=== PATIENT | female | born 1995 | race Caucasian/White ===

== ENCOUNTER 2023-06-04 16:37 | Inpatient (IN) | payer BC ==
[2023-06-04] MEDS ORDERED: Ampicillin 2 GM in Sodium Chloride 0.9% 100 ML IV ONE (18:33)
[2023-06-04] MEDS ORDERED: Sodium Chloride 0.9% 10 ML Syringe FLUSH PRN (18:33)
[2023-06-04] MEDS ORDERED: Nalbuphine 10 MG/0.5 ML Syringe IVPUSH PRN (18:33)
[2023-06-04] MEDS ORDERED: Oxytocin/Lactated Ringers 10 UNIT/1,000 ML BAG IV SCH (18:45)
[2023-06-04] MEDS: Lactated Ringers 1,000 ML IV SCH ×3 (18:58→23:18)
[2023-06-04] MEDS ORDERED: diphenhydrAMINE 50 MG/ML SDV IVPUSH PRN (19:04)
[2023-06-04] MEDS ORDERED: Bupivacaine/fentaNYL/NS 100 ML Bag EPIDUR PRN (19:04)
[2023-06-04] MEDS ORDERED: fentaNYL 100 MCG/2 ML SDV EPIDUR PRN (19:04)
[2023-06-04] MEDS ORDERED: ePHEDrine 50 MG/ML SDV IVPUSH PRN (19:04)
[2023-06-04 19:07] LABS: BASOPHILS PERCENT AUTO 0.2 % (0.0-1.0); EOSINOPHILS PERCENT AUTO 0.2 % (0.0-6.0); HEMATOCRIT 35.3 % (37.0-47.0); HEMOGLOBIN 12.1 gm/dl (12.0-16.0); IMMATURE GRAN PERCENT AUTO 0.6 % (0.0-0.4); LYMPHOCYTES ABSOLUTE AUTO 1.9 K/mm3 (1.0-4.8); LYMPHOCYTES PERCENT AUTO 11.6 % (24.0-44.0); MEAN CORPUSCULAR HEMOGLOBIN 30.3 pg (28.0-32.0); MEAN CORPUSCULAR HGB CONC 34.3 g/dl (32.0-36.0); MEAN CORPUSCULAR VOLUME 88.5 fl (83.0-99.0); MEAN PLATELET VOLUME 10.7 fl (9.4-12.3); MONOCYTES ABSOLUTE AUTO 0.7 K/mm3 (0.0-0.8); MONOCYTES PERCENT AUTO 4.5 % (0.0-8.0); NEUTROPHILS ABSOLUTE AUTO 13.5 K/mm3 (1.8-7.7); NEUTROPHILS PERCENT AUTO 82.9 % (41.0-71.0); PLATELET COUNT,PLT 220 K/mm3 (150-400); RED BLOOD CELL COUNT 3.99 M/mm3 (4.10-5.30); WHITE BLOOD CELL COUNT,WBC 16.31 K/mm3 (3.9-11.3)
[2023-06-04] MEDS ORDERED: Sodium Chloride 0.9% 10 ML Syringe FLUSH SCH (21:00)
[2023-06-04] MEDS: Ampicillin 1 GM in Sodium Chloride 0.9% 100 ML IV SCH (23:13)
[2023-06-05] MEDS: Lactated Ringers 1,000 ML IV SCH (00:32)
[2023-06-05] MEDS ORDERED: Acetaminophen 325 MG Tab PO PRN (03:05)
[2023-06-05] MEDS ORDERED: Docusate Sodium 100 MG Cap PO PRN (03:05)
[2023-06-05] MEDS ORDERED: Benzocaine/Menthol 20%-0.5% Spray 78 GM Cannister TOP PRN (03:05)
[2023-06-05] MEDS: Ibuprofen 600 MG Tab PO PRN ×3 (03:29→20:56)
[2023-06-05] MEDS: Witch Hazel Medicated Pads 40/Jar TOP PRN (14:19)
[2023-06-06] MEDS: Ampicillin 1 GM in Sodium Chloride 0.9% 100 ML IV SCH (10:15)
[2023-06-06] MEDS: Ibuprofen 600 MG Tab PO PRN ×2 (12:17→20:44)
[2023-06-06] MEDS: Witch Hazel Medicated Pads 40/Jar TOP PRN (12:21)
[2023-06-07] MEDS ORDERED: Measles, Mumps & Rubella Vaccine 0.5 ML SDV SUBCUT ONE (10:45)
== END 2023-06-07 12:10 | disposition home or self-care (01) | DRG 560 ==
LOC: JD.OBCHECK 16:37 → JD.OB 17:01 → JD.OBCHECK 18:32 → JD.OB 18:33 → OBSVTOIN 06-05 01:58 → JD.OB 06-05 01:59
PROVIDERS: ADMIT Obstetrics & Gynecology; ATTEND Obstetrics & Gynecology
PROC: 10E0XZZ Delivery of Products of Conception, External Approach (ICD-10-PCS; principal; 2023-06-05)
PROC: 0KQM0ZZ Repair Perineum Muscle, Open Approach (ICD-10-PCS; 2023-06-05)
PROC: 3E0R3BZ Introduction of Anesthetic Agent into Spinal Canal, Percutaneous Approach (ICD-10-PCS; 2023-06-05)
PROC: 00HU33Z Insertion of Infusion Device into Spinal Canal, Percutaneous Approach (ICD-10-PCS; 2023-06-05)
PROC: 3E0234Z Introduction of Serum, Toxoid and Vaccine into Muscle, Percutaneous Approach (ICD-10-PCS; 2023-06-05)
DX: O99.824 Streptococcus B carrier state complicating childbirth (principal); Z37.0 Single live birth; Z3A.39 39 weeks gestation of pregnancy; O70.1 Second degree perineal laceration during delivery; Z88.4 Allergy status to anesthetic agent; Z28.39 Other underimmunization status; Z23 Encounter for immunization
CPT/HCPCS: 36415; 51702; 59025; 59409; 85025; 86592; 86850; 86900; 86901; 90471; 90707; A9270-GY; J0290; J2590; J3010; J3490; J7120